=== PATIENT | female | born 1970 | race Caucasian/White ===

== ENCOUNTER 2019-12-29 06:47 | Observation (INO) ==
--- NOTE | 2019-11-26 15:00 | PAT Medication Instructions ---
Medication Instructions Date of Service November 26, 2019 Home Medications Medication Instructions Recorded Ashley Abad #1 ea 10/28/19 buprenorphine-naloxone [Suboxone] 1 film BUCCAL TID cholecalciferol (vitamin D3) [Vitamin D3] 25 mcg PO QPM ferrous sulfate [iron] 325 mg PO QPM gabapentin 600 mg PO TID venlafaxine [Effexor] 75 mg PO QAM vitamin B complex 1 tab PO QAM Continue as directed buprenorphine-naloxone [Suboxone] 1 film BUCCAL TID DO NOT take the morning of surgery vitamin B complex 1 tab PO QAM Take morning of surgery With a small sip of water, OTHERWISE NOTHING TO EAT OR DRINK AFTER MIDNIGHT: gabapentin 600 mg PO TID venlafaxine [Effexor] 75 mg PO QAM Take evening before surgery cholecalciferol (vitamin D3) [Vitamin D3] 25 mcg PO QPM ferrous sulfate [iron] 325 mg PO QPM gabapentin 600 mg PO TID Other Notes If you have any questions please call us at [phone] or [phone] or [phone] or [phone]
--- NOTE | 2019-11-30 09:46 | Anesthesiology Consultation ---
Date of Service November 30, 2019 Assessment & Plan (1) Encounter for pre-operative examination: Chart Review Chart Review: Pending: Refer to Additional Notes / Consult section (pending response from PCP re: PTT and preop Covid testing results ) and Patient seen in Pre Admission Testing Surgeon's office informed of elevated PTT. Will also write note to PCP re: elevated PPT and if further work up needed. Per PAT appt on 11/30/19, patient denies recent travel. No known Covid positive contacts or Covid related symptoms. Educated patient to follow up with surgeon's office regarding Covid testing. Educated on importance of self quarantining, social distancing and wearing mask in public both for the patient and household contacts. Pt's son is in school- class size on 7 children- did educated patient to instruct child to wear mask and be extra cautious from time of Covid test until patient's surgery Teaching & Discussion Pre-Anesthesia Teaching/Discussion Notes: Instructed NPO after midnight before surgery,except medications with 15 cc of water. Medication instructions provided according to the PAT guidelines. History Surgery Operation Date: 12/29/19 07:10 Proposed Procedures p Left Total Hip Arthroplasty - Richard Coffey MD Height/Weight Height: 5 ft 6 in Weight: 88.3 kg Allergies Allergy/AdvReac Type Severity Reaction Status Date / Time buspirone [From BuSpar] AdvReac Hypotension Verified 11/26/19 10:47 NSAIDS (Non-Steroidal AdvReac h/o Verified 11/26/19 11:07 Anti-Inflamma gastric bypass Medications Home Medications Medication Instructions Recorded Confirmed Last Taken Wheeled Walker #1 ea 10/28/19 10/28/19 Unknown buprenorphine-naloxone [Suboxone] 1 film BUCCAL TID 11/26/19 11/26/19 Unknown cholecalciferol (vitamin D3) 25 mcg PO QPM 11/26/19 11/26/19 Unknown [Vitamin D3] ferrous sulfate [iron] 325 mg PO QPM 11/26/19 11/26/19 Unknown gabapentin 600 mg PO TID 11/26/19 11/26/19 Unknown venlafaxine [Effexor] 75 mg PO QAM 11/26/19 11/26/19 Unknown vitamin B complex 1 tab PO QAM 11/26/19 11/26/19 Unknown Past Medical History Medical History Anxiety Bulging lumbar disc Depression History of diabetes mellitus resolved after gastric bypass 10 years ago Rheumatoid arthritis Follows with sports management professor- considering Humira in the future- will not start until after surgery. Spinal stenosis Exercise / Class Metabolic Activity II 4-5 Yardwork/Stairs/Walk up hill (one flight of stairs - no chest pain or SOB) Past Family History Family History Other Adopted Past Surgical History Surgical History History of colonoscopy History of esophagogastroduodenoscopy (EGD) History of gastric bypass History of hysterectomy with unilateral oophorectomy History of laparoscopy History of lithotripsy History of mandibular surgery hardware present on left side - no issues with opening or closing jaw History of open reduction and internal fixation (ORIF) procedure RLE History of parotidectomy Rt History of removal of retained hardware RLE History of tonsillectomy Past Anesthesia History No Hx of Anesthesia Complications and Other (Pt adopted - FH not known ) History of PONV No Hx of PONV and No Hx of Motion Sickness Social History Smoking Status: Former smoker Do You Dip or Chew Tobacco: No Smoking End Date: quit 1.5 years ago Hx Alcohol Use: No Hx Substance Use: Yes substance use type: former substance user, marijuana (medical- has card- uses pill form) and painkillers Substance Use Type Other:: narcotics following gastric bypass -- currently on suboxone Review of Systems Occ reflux- well controlled with OTC meds Patient denies chest pain, shortness of breath, dyspnea on exertion, cough, wheezing, palpitations. No hx of seizures, stroke, OR, apnea/snoring. No hx of blood clots or blood transfusions Physical Exam Vital Signs VITALS BP 119/64 P 69 TEMP 97.9 SP02 97% RESP 16 Constitutional no acute distress ENMT Mouth: no TMJ clicking Thyromental Distance: > or= 3.5 Finger Breadths (3.5) Mallampati Class: I All top teeth crowned or capped Neck neck extension not limited Respiratory normal respiratory effort; no respiratory distress Auscultation: lungs clear to auscultation bilaterally; no wheezes Cardiovascular Rate/Rhythm: regular rate and regular rhythm Heart Sounds: no murmur Vessels: no carotid bruit Neurologic moves all extremities Psychiatric Orientation: alert Testing Laboratory Results 11/30/19 10:08 11/30/19 10:08 PT 10.6 Seconds (9.0-12.0) 11/30/19 10:08 INR 1.0 (0.9-1.1) 11/30/19 10:08 APTT 37.9 Seconds (21.0-31.0) H 11/30/19 10:08 Blood Type O Positive 11/30/19 10:08 Antibody Screen NEGATIVE 11/30/19 10:08 Electrocardiogram Date: 11/30/19 NSR with sinus arrhythmia at 65 bpm. Normal EKG. Chest X-Ray Date: 11/30/19 Findings: + NAD
--- NOTE | 2019-11-30 10:45 | XRay Report ---
XR chest Pre-admission PA/Lat CLINICAL HISTORY: Preoperative chest COMPARISON STUDY: No previous studies for comparison. FINDINGS: The cardiac and mediastinal contours are normal. There is no evidence of focal pulmonary co nsolidation. There is no evidence of failure. No pleural effusions are visualized.[ IMPRESSION: No active disease in the chest. ACT 112: Negative or not required by law. Electronically signed by: Rivera Pierce M.D. 11/30/2019 10:43 AM
[2019-11-30 10:54] LABS: Basophils # (auto) 0.02 K/uL (0-0.2); Basophils % (auto) 0.3 %; Eosinophils # (auto) 0.18 K/uL (0-0.5); Eosinophils % (auto) 2.3 %; Hematocrit (blood only) 43.9 % (37-47); Hemoglobin 14.1 g/dL (12.0-16.0); Immature Granulocytes # (auto) 0.01 K/uL (0.00-0.02); Immature Granulocytes % (auto) 0.1 %; Lymphocytes # (auto) 2.12 K/uL (1.2-3.4); Lymphocytes % (auto) 26.9 %; Mean Corpuscular Hemoglobin 28.6 pg (25-34); Mean Corpuscular Hgb Conc 32.1 g/dL (32-36); Mean Platelet Volume 10.4 fL (7.4-10.4); Monocytes # (auto) 0.56 K/uL (0.11-0.59); Monocytes % (auto) 7.1 %; Neutrophils # (auto) 4.99 K/uL (1.4-6.5); Neutrophils % (auto) 63.3 %; Platelet Count 291 K/uL (130-400); RDW Coefficient of Variation 13.6 % (11.5-14.5); RDW Standard Deviation 44.5 fL (36.4-46.3); Red Blood Count 4.93 M/uL (4.2-5.4); White Blood Count 7.88 K/uL (4.8-10.8)
[2019-11-30 11:04] LABS: BUN Creatinine Ratio 12.9 (10-20); Calcium 9.1 mg/dl (8.5-10.1); Creatinine Clr Calc Pharmacy 127.6 ml/min; Est GFR (African American) 125.1; Potassium 4.2 mmol/L (3.5-5.1)
[2019-11-30 11:05] LABS: C Reactive Protein 0.37 mg/dl (0-0.29); Partial Thromboplastin Ratio 1.4; Partial Thromboplastin Time 37.9 Seconds (21.0-31.0); Prothrombin Time 10.6 Seconds (9.0-12.0)
--- NOTE | 2019-11-30 15:16 | Electrocardiogram Report ---
Test Reason : Blood Pressure : / mmHG Vent. Rate : 065 BPM Atrial Rate : 065 BPM P-R Int : 132 ms QRS Dur : 088 ms QT Int : 416 ms P-R-T Axes : 029 062 065 degrees QTc Int : 432 ms Normal sinus rhythm with sinus arrhythmia Normal ECG No previous ECGs available Confirmed by Bob Laurent ([id number]) on 11/30/2019 3:16:00 PM Referred By: Richard Coffey Confirmed By:Bob Laurent
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
[~2019-12-29 06:47] MED LIST: ACETAMINOPHEN 500 MG TAB PO SCH; BUPIVACAINE 0.5 % 5 MG/1 ML PF 10ML VIAL ONE; FAMOTIDINE 20 MG TAB PO SCH; GABAPENTIN 900 MG DOSE PO SCH; LR 500ML BOLUS, THEN 15ML/HR IV SCH; LR 60ML/HR IV SCH; METOCLOPRAMIDE HCL 10 MG TABLET PO SCH; MIDAZOLAM HCL 1 MG/ML 2ML VIAL ONE; TRANEXAMIC ACID 1,000 MG **IV Pre-op IV SCH; ceFAZolin 2000MG 2,000 MG/15 ML SYR IV SCH; fentaNYL citrate 100 MCG/2 ML VIAL ONE
[2019-12-29] MEDS ORDERED: MoRPHine SULFATE PF 1 MG/ML 10 ML AMP/VIAL ONE (06:51)
--- NOTE | 2019-12-29 06:57 | History & Physical Bridge Note ---
Date of Service December 29, 2019 History & Physical Bridge Note I have examined the patient, reviewed the History & Physical and in the interval since the performance of the History & Physical I have noted the following changes of clinical significance: no changes noted
[2019-12-29 07:34] LABS: Partial Thromboplastin Ratio 1.4; Partial Thromboplastin Time 37.7 Seconds (21.0-31.0); Prothrombin Time 10.6 Seconds (9.0-12.0)
[2019-12-29] MEDS ORDERED: ONDANSETRON INJ 2 MG/ML 2 ML VIAL IV PRN ×3 (07:59→12:16)
[2019-12-29] MEDS ORDERED: fentaNYL citrate 100 MCG/2 ML VIAL IV PRN (07:59)
[2019-12-29] MEDS ORDERED: ATROPINE SULFATE 0.1 MG/ML 10ML SYR IV PRN (07:59)
[2019-12-29] MEDS ORDERED: ePHEDrine sulfate 50 MG/ML AMP IV PRN ×2 (07:59→09:01)
[2019-12-29] MEDS ORDERED: EPINEPHrine INJ 1 MG/ML AMP ONE (08:51)
[2019-12-29] MEDS ORDERED: BUPIVACAINE 0.5 % 5 MG/1 ML MPF 30ML VIAL ONE (08:51)
[2019-12-29] MEDS ORDERED: BACITRACIN INJ 50,000 UNIT VIAL ONE (08:52)
[2019-12-29] MEDS ORDERED: LACTATED RINGER'S 500 ML IV PRN (09:01)
[2019-12-29] MEDS ORDERED: MoRPHine SULFATE PF 1 MG/ML 10 ML AMP/VIAL INT SPINAL ONE (09:01)
[2019-12-29] MEDS ORDERED: PROMETHAZINE HCL 12.5 MG in SODIUM CHLORIDE 0.9% 50 ML IV PRN (09:01)
[2019-12-29] MEDS ORDERED: NALOXONE HCL 0.4 MG/1 ML VIAL/CARP IV PRN ×2 (09:01→12:16)
[2019-12-29] MEDS ORDERED: HYDROmorphone INJ 0.5 MG/0.5 ML SYR IV PRN ×2 (09:01→12:16)
[2019-12-29] MEDS ORDERED: diphenhydrAMINE 50 MG/ML VIAL IV PRN (09:01)
[2019-12-29] MEDS ORDERED: NALOXONE HCL 0.08 MG in SYRINGE 1.8 ML IV PRN (09:01)
[2019-12-29] MEDS ORDERED: NALOXONE HCL 1 MG in SODIUM CHLORIDE 0.9% 1000ML 1,000 ML IV PRN (09:01)
[2019-12-29] MEDS ORDERED: NO NARCOTICS OR SEDATIVES SCH (09:15)
[2019-12-29] MEDS ORDERED: SODIUM CHLORIDE 0.9% 1000ML 1,000 ML IV SCH (09:15)
[2019-12-29] MEDS ORDERED: MIDAZOLAM HCL 1 MG/ML 2ML VIAL ONE (09:20)
[2019-12-29] MEDS ORDERED: LIDOCAINE HCL 2% 2 ML VIAL/AMP(20MG/ML) INFIL ONE (09:34)
[2019-12-29] MEDS ORDERED: PROPOFOL IV EMULSION 10 MG/ML 20 ML VIAL IV ONE ×2 (09:35→10:22)
[2019-12-29] MEDS ORDERED: ONDANSETRON INJ 2 MG/ML 2 ML VIAL ONE (09:35)
[2019-12-29] MEDS ORDERED: ePHEDrine sulfate 50 MG/ML SYR ONE (09:35)
--- NOTE | 2019-12-29 10:46 | Post Operative Brief Note ---
PG Immediate Post Op with CF Date of Surgery December 29, 2019 Pre & Post Diagnosis Operation Date: 12/29/19 09:10 Pre-Op Diagnosis: Left Hip Arthritis Post-Op Diagnosis: Left Hip Arthritis I identified the patient and participated in the time-out.: Yes Procedure Operation Date: 12/29/19 09:10 Actual Procedures p Left Total Hip Arthroplasty-uncemented(Left) - Richard Coffey MD Surgeon Richard Coffey MD Data Sciences Director Aishwarya PAC Estimated Blood Loss 200 Findings Consistent with Post-Op Diagnosis Fluids 1500 cc Specimens Specimen Description: Permanent specimen: A. Left femoral head Drains Vega Catheter (16 fr vega catheter inserted by CORNELIO Goodman, clear yellow urine for return) Anesthesia Type Spinal MAC Complications none Disposition Accompanied Patient To Recovery: Yes Disposition: Recovery Room
--- NOTE | 2019-12-29 11:00 | Operative Report ---
Post Operative Report Pre & Post Diagnosis Operation Date: 12/29/19 09:10 Pre-Op Diagnosis: Left Hip Arthritis Post-Op Diagnosis: Left Hip Arthritis I identified the patient and participated in the time-out.: Yes Procedure Operation Date: 12/29/19 09:10 Actual Procedures p Left Total Hip Arthroplasty-uncemented(Left) - Richard Coffey MD Surgeon Richard Coffey MD Clinic Md Associate Aishwarya, PAC Estimated Blood Loss 200 Findings Consistent with Post-Op Diagnosis Operative findings revealed advanced left hip DJD with grade 4 [id number] disease of the femoral head and acetabulum. She had subluxation of the femoral head and the acetabulum. She had a very deficient posterior wall the acetabulum with the appearance of a retroverted acetabulum. She had some moderate anterior acetabular osteophytes. She had a fairly large hip joint effusion. She had a very stiff hip preoperatively and I could not even flex to 90degrees or even internally rotated to neutral. Fluids 1500 cc Specimens Left femoral head sent for pathology. Drains None. Anesthesia Type Spinal MAC Complications none Disposition Accompanied Patient To Recovery: Yes Disposition: Recovery Room Indications Patient is a 49-year-old female whose had a several year history of gradually increasing left hip pain discomfort and stiffness. She failed all conservative measures. X-rays show advanced left hip arthritis. She is had to resort to using a cane to get around. Patient elected to a total hip arthroplasty. Description of Procedure Operative implants consist of: 1. Biomet G7 size 52 mm acetabular shell. 2. 6.5 cancellus acetabular screws 1 of 35 mm length 120 mm length. 3. An apex hole eliminator. 4. Highly cross-linked polyethylene liner with a 52 mm outer diameter and 32 mm inner diameter. 5. Norco Corail size 11 KLA femoral stem. 6. +5/32 mm ceramic articular ball. The patient was taken to the operating room identified and placed on the operating table supine position protectors were properly padded. IV antibiotics arrived by anesthesia team. Spinal anesthetic had been implemented in the holding area. Sheriff catheter was placed in sterile fashion. The patient then placed in the right lateral decubitus position. Axillary roll was placed. A Stulberg hip positioner was used for positioning. Left hip and leg were then prepped and draped in usual sterile fashion. A posterior lateral approach to the left hip was then performed through a curvilinear incision centered over the greater trochanter. Sharp dissection was carried out through subcutaneous tissues down to level the IT band gluteal fascia with the IT band gluteal fascia were incised longitudinally in line with skin incision. The underlying greater truck bursa was excised. The piriformis and external rotators as well as the posterior hip joint capsule were then taken off the posterior aspect hip joint as a single layer. She had a significant external rotation contracture. We took great care to stay right on the bone and release this from the femoral neck. Eventually, the hip was internally rotated and dislocated. Femoral neck osteotomy cut was made with Final Cut about 10 mm above the lesser trochanter. Femoral head was removed and sent for pathology. The femur was retracted anteriorly. Attention drawn to the acetabulum. The acetabular labrum was excised. The pulmonary fat was excised. She had a very deficient posterior wall. I then began reaming and starting at a 43 and progressing up to 51. I did reamed a little bit with a 52 reamer and then placed a 52 mm Biomet G7 acetabular shell in about 40 degrees of lateral opening and 20 degrees of anteversion. There was a fairly large anterior osteophyte which I removed. She did have a deficient posterior wall but we got good fixation. 2 screws were placed for fixation. A trial liner was placed. Attention drawn the femur. The proximal femur was entered with a cookie-cutter followed by canal finder. I then broached begin the size 8 and progressing up to 10 Pretty good fit of 10. We then trialed the hip and the PIP hip appeared stable in full extension and external rotation flexion to 9 degrees into rotation over 50 degrees. Leg lengths seemed appropriate and soft tissue tension seemed appropriate. We elect to place these implants. All trial implants were removed. An apex hole seed trucker was placed. Highly cross-linked polyethylene liner was placed. I then placed a size 10 KLA femoral stem. We then placed the head which is supposed to be a +5/32 mm head. However I was given the +5/36 mm head. When I relocated this it obviously did not look right in the polyethylene. We then took this out and upon tapping this out we did attempt about some of the implant and I was concerned about the fixation of the implant and the tightness and fit. Therefore I broached up to a size 11 and placed 11 stem. We then placed a +5/32 mm ceramic articular ball. Hip was located once again found to be stable. Leg length seemed equal. Attention drawn toward closing. Wound was irrigated copious pulsatile lavage solution. I did inject locally with 60 cc of appetite Marcaine with epinephrine. Posterior capsule and external rotators were then repaired through drill holes in the posterior trochanter as a single layer. The IT band gluteal fascia then closed in 1 PDS suture running fashion. Subcutaneous tissue then closed with 2 layers with a deep layer #1 Vicryl suture and subcutaneous tissues with 2-0 Dexon suture in a buried interrupted fashion. Skin was closed with skin aime. Leg was then cleaned dried a sterile dressed composed Xeroform, 4 x 4's, sterile ABD pad, foam tape was applied. The patient then transferred to the recovery room in stable condition. The patient tolerated the procedure well and there were no complications. Jose Juan May, my physician assistant professor of spanish, was present for the entire procedure. His assistance was essential and required for appropriate patient positioning, prepping and draping, surgical exposure, performing the technical details of the operation, placement the implants, closure of the wound, and placement of the sterile dressing. I attest to the content of the Intraoperative Record and any orders documented therein. Any exceptions are noted below.
--- NOTE | 2019-12-29 11:15 | XRay Report ---
AP PELVIS, CROSSTABLE LATERAL LEFT HIP History: Left total hip arthroplasty. Degenerative arthritis. Postop. FINDINGS: The patient is status post a left total hip arthroplasty. The hardware is intact. No fractu re or dislocation. Skin aime are in place. IMPRESSION: Left total hip arthroplasty. No evidence for hardware complication. ACT 112: Negative or not required by law. Electronically signed by: Ridge North M.D. 12/29/2019 11:13 AM
[2019-12-29] MEDS ORDERED: MAGNESIUM HYDROXIDE SUSP 30 ML UDC PO PRN (12:16)
[2019-12-29] MEDS ORDERED: NO NSAIDS SCH (12:16)
[2019-12-29] MEDS ORDERED: diphenhydrAMINE Capsule 25 MG CAP PO PRN (12:16)
[2019-12-29] MEDS ORDERED: bisacodyL 10 MG SUPP PR PRN (12:16)
[2019-12-29] MEDS ORDERED: HYDROmorphone HCL 2 MG TAB PO PRN (12:16)
[2019-12-29] MEDS ORDERED: ALUMINUM/MAGNESIUM SUSP 30 ML UDC PO PRN (12:16)
[2019-12-29] MEDS ORDERED: METOCLOPRAMIDE HCL INJ 5 MG/ML 2 ML VIAL IV PRN (12:16)
[2019-12-29] MEDS ORDERED: MEDICAL MARIJUANA PO PRN (12:25)
[2019-12-29] MEDS: GABAPENTIN 600 MG TAB PO SCH ×2 (13:56→22:06)
[2019-12-29] MEDS: ACETAMINOPHEN 500 MG TAB PO SCH ×2 (13:56→22:08)
--- NOTE | 2019-12-29 14:00 | Anesthesiology Progress Note ---
Date of Service December 29, 2019 Anesthesia Post Procedure Vital Signs Vital Signs: Temp Pulse Pulse Resp BP BP Pulse Ox 12/29/19 13:29 36.4 C L 62 16 118/59 L 100 12/29/19 12:32 55 L 16 97/60 L 99 12/29/19 12:05 36.6 C 54 L 15 113/74 95 12/29/19 11:45 58 L 12 108/59 L 95 12/29/19 11:30 68 15 111/46 L 97 12/29/19 11:25 57 L 13 111/59 L 97 12/29/19 11:15 36.3 C L 79 16 108/57 L 100 12/29/19 11:05 67 16 128/52 L 100 12/29/19 10:55 62 15 112/52 L 100 12/29/19 10:48 36.1 C L 69 16 120/59 L 100 12/29/19 08:00 36.9 C 76 16 119/75 76 L 12/29/19 07:05 36.7 C 70 16 138/89 98 Pain Intensity Left Hip: Pain Intensity: 0 Transfer of Care Handoff Completed per policy Notes Mental Status: alert / awake / arousable and participated in evaluation Patient Amnestic to Procedure: Yes Nausea / Vomiting: adequately controlled Pain: adequately controlled Airway Patency, RR, SpO2: stable & adequate BP & HR: stable & adequate Hydration State: stable & adequate Neuraxial Anesthesia: was administered and sensory block is resolving Anesthetic Complications: no major complications apparent and Pt Satisfied with anesthetic care
[2019-12-29] MEDS: MoRPHine SULFATE 2 MG/ML CARP IV PRN ×2 (15:27→19:51)
[2019-12-29] MEDS: SODIUM CHLORIDE 0.9% 1000ML 1,000 ML IV SCH (15:28)
--- NOTE | 2019-12-29 15:58 | Progress Notes ---
DATE: 12/29/2019 SUBJECTIVE: A 49-year-old white female postop from a left hip replacement. She is doing pretty well. Really not having any pain yet. No chest pain or shortness of breath. Not feeling dizzy or lightheaded. OBJECTIVE: VITAL SIGNS: Temperature 36.3. Vital signs stable. GENERAL: Shows a pleasant, middle-aged female. She is lying in bed, talking to a friend and looks quite comfortable. LUNGS: Clear to auscultation. HEART: Has regular rate and rhythm. ABDOMEN: Soft, nontender, nondistended. EXTREMITIES: Grossly neurovascularly intact except as follows: Examination of the left hip and leg reveals the leg to be well aligned. Dressing is clean, dry and intact. Thigh is soft and supple. She is neurologically intact. X-RAYS: X-rays of left hip from recovery room are reviewed. It shows a left uncemented total hip arthroplasty. Components looked to be in good position. No signs of problems. ASSESSMENT: A 49-year-old white female postoperative from left hip replacement, doing well. Pain is controlled. Hip is located. She is neurologically intact. PLAN: 1. DVT prophylaxis including thigh-high TEDs, SCDs, and we are going to use Xarelto for postoperative anticoagulation as she had gastric bypass surgery and cannot take aspirin. 2. PT/OT. Weight bear as tolerated. Left total hip protocol. 3. Pain control, doing well with current pain regimen. 4. IV antibiotics x24 hours. 5. Disposition: Plan to discharge to home with some home health once adequately recovered and medically stable.
[2019-12-29] MEDS: Scopolamine CHECK PATCH PLACEMENT SCH ×2 (16:24→23:57)
[2019-12-29] MEDS: ceFAZolin 2000MG 2,000 MG/15 ML SYR IV SCH ×2 (16:33→23:57)
[2019-12-29] MEDS: ASCORBIC ACID 500 MG TAB PO SCH (16:34)
[2019-12-29] MEDS: FERROUS GLUCONATE 324 MG TAB PO SCH (16:34)
[2019-12-29] MEDS ORDERED: TRANEXAMIC ACID / 0.7% NACL 1,000 MG/100 ML BAG IV SCH (16:49)
[2019-12-29] MEDS ORDERED: SENNA 8.6 MG TAB PO SCH (21:00)
[2019-12-29] MEDS ORDERED: CHOLECALCIFEROL 1,000 UNITS 25 MCG TAB PO SCH (21:00)
[2019-12-29] MEDS: DOCUSATE SODIUM 100 MG CAP PO SCH (22:06)
[2019-12-29] MEDS: TAPENTADOL HCL ER 50 MG TABCR PO SCH (22:11)
[2019-12-30] MEDS: SODIUM CHLORIDE 0.9% 1000ML 1,000 ML IV SCH (00:04)
[2019-12-30] MEDS ORDERED: DC INTRASPINAL MORPHINE ONE (03:01)
[2019-12-30] MEDS: ACETAMINOPHEN 500 MG TAB PO SCH ×2 (05:36→14:02)
[2019-12-30 06:10] LABS: Basophils # (auto) 0.01 K/uL (0-0.2); Basophils % (auto) 0.1 %; Eosinophils % (auto) 1.2 %; Hematocrit (blood only) 39.4 % (37-47); Hemoglobin 12.7 g/dL (12.0-16.0); Immature Granulocytes # (auto) 0.03 K/uL (0.00-0.02); Immature Granulocytes % (auto) 0.2 %; Lymphocytes # (auto) 1.29 K/uL (1.2-3.4); Lymphocytes % (auto) 7.8 %; Mean Corpuscular Hemoglobin 29.1 pg (25-34); Mean Corpuscular Hgb Conc 32.2 g/dL (32-36); Mean Corpuscular Volume 90.2 fL (80-100); Monocytes # (auto) 1.65 K/uL (0.11-0.59); Neutrophils # (auto) 13.36 K/uL (1.4-6.5); Neutrophils % (auto) 80.7 %; Platelet Count 266 K/uL (130-400); RDW Coefficient of Variation 13.8 % (11.5-14.5); RDW Standard Deviation 46.4 fL (36.4-46.3); Red Blood Count 4.37 M/uL (4.2-5.4); White Blood Count 16.54 K/uL (4.8-10.8)
[2019-12-30 06:44] LABS: BUN Creatinine Ratio 10.6 (10-20); Calcium 8.3 mg/dl (8.5-10.1); Creatinine Clr Calc Pharmacy 118.5 ml/min; Est GFR (African American) 122.5; Est GFR (Non-African American) 105.7; Potassium 4.5 mmol/L (3.5-5.1)
--- NOTE | 2019-12-30 08:25 | Progress Notes ---
DATE: 12/30/2019 SUBJECTIVE: A 49-year-old female postop day 1 from a left hip replacement. She is doing pretty well. Had a good night. Pain is controlled. She is mostly taking Tylenol. No chest pain or shortness of breath. Not feeling dizzy or lightheaded. OBJECTIVE: VITAL SIGNS: Temperature is 37.1. Vital signs stable. GENERAL: Shows a pleasant, middle-aged female. She is lying in bed, looks pretty comfortable. EXTREMITIES: Examination of the left hip and leg reveals the leg lengths to be equal. The left leg is well aligned. Dressing is clean, dry and intact. Thigh is soft and supple. She is neurologically intact. LABORATORY DATA: Hemoglobin 12.7. Hematocrit is 39.4. White cell count 16.54. Electrolytes are stable. ASSESSMENT: A 49-year-old white female postop day 1 from a left hip replacement, doing pretty well. Pain is controlled. Hip is located. She is neurologically intact. White cell count is a little elevated, likely related to stress. PLAN: 1. DVT prophylaxis including thigh-high TEDs, SCDs, and Xarelto for a month. 2. PT/OT. Weight bear as tolerated. Left total hip protocol. 3. Pain control, doing well with current pain regimen. We will use Tylenol around the clock and Dilaudid only if needed. 4. Disposition: Plan to discharge to home with some home health once medically stable.
[2019-12-30] MEDS: Scopolamine CHECK PATCH PLACEMENT SCH (08:57)
[2019-12-30] MEDS: TAPENTADOL HCL ER 50 MG TABCR PO SCH (08:58)
[2019-12-30] MEDS: DOCUSATE SODIUM 100 MG CAP PO SCH (08:59)
[2019-12-30] MEDS: GABAPENTIN 600 MG TAB PO SCH ×2 (08:59→14:01)
[2019-12-30] MEDS: FERROUS GLUCONATE 324 MG TAB PO SCH (08:59)
[2019-12-30] MEDS ORDERED: VITAMIN B COMPLEX TAB PO SCH (09:00)
[2019-12-30] MEDS ORDERED: VENLAFAXINE HCL 37.5 MG TAB PO SCH (09:00)
[2019-12-30] MEDS: ASCORBIC ACID 500 MG TAB PO SCH (09:00)
[2019-12-30] MEDS ORDERED: MULTIVITAMIN TAB PO SCH (09:00)
[2019-12-30] MEDS ORDERED: RIVAROXABAN 10 MG TABLET PO SCH (11:00)
== END 2019-12-30 14:40 | disposition home health service (06) ==
LOC: 3E 06:47 → ASU 06:47